=== PATIENT | male | born 1990 | race Caucasian/White ===

== ENCOUNTER → 2017-09-03 | Outpatient (CLI) | payer OTHER ==
--- NOTE | 2017-09-03 16:50 | XR ---
EXAMINATION TYPE: XR chest 2V DATE OF EXAM: 09/03/2017 COMPARISON: 03/26/2015 HISTORY: Chest pain TECHNIQUE: Frontal and lateral views of the chest are obtained. FINDINGS: Heart and mediastinum are normal. Lungs are clear of consolidation. There is no pleural ef fusion. Bony thorax is intact. IMPRESSION: Normal chest. No change.
== END ==
LOC: RADXRMAIN 16:33
PROVIDERS: ATTEND Physician Assistant
DX: R07.9 Chest pain, unspecified (principal)
CPT/HCPCS: 71020

== ENCOUNTER → 2017-12-05 | Outpatient (CLI) | payer OTHER ==
--- NOTE | 2017-12-05 10:59 | XR ---
EXAMINATION TYPE: XR ankle complete LT, XR foot complete LT DATE OF EXAM: 12/05/2017 CLINICAL HISTORY: Pain. TECHNIQUE: Frontal, lateral and oblique images of the left ankle and foot are obtained. COMPARISON: None. FINDINGS: There is no acute fracture/dislocation evident in the left ankle. The ankle mortise appea rs within normal limits. Mild diffuse subcutaneous edema is felt present. There is no acute fracture or dislocation evident in the left foot. Some flexion in the toes is noted . The joint spaces in the left foot are preserved. Mild subcutaneous edema is seen. IMPRESSION: Mild subcutaneous edema otherwise unremarkable study.
--- NOTE | 2017-12-05 11:00 | XR ---
EXAMINATION TYPE: XR lumbar spine 2 or 3V DATE OF EXAM: 12/05/2017 CLINICAL HISTORY: Low back pain. TECHNIQUE: Frontal and lateral images of the lumbar spine are obtained. COMPARISON: None FINDINGS: There are 5 lumbar type vertebral bodies identified. The lumbar spine shows straightened alignment without evidence of acute fracture or dislocation. Vertebral body heights and disk space he ights are within normal limits. No significant spurring is seen. The overlying soft tissue appears u nremarkable. IMPRESSION: Straightening of spine otherwise unremarkable study.
--- NOTE | 2017-12-05 11:02 | XR ---
EXAMINATION TYPE: XR Hip Complete RT DATE OF EXAM: 12/05/2017 CLINICAL HISTORY: Right hip pain. TECHNIQUE: AP and frogleg views of the right hip are obtained. COMPARISON: Right hip x-ray October 02, 2011. FINDINGS: There is no acute fracture/dislocation evident in the right hip. Moderate to severe superi or joint space loss remains present. There is new severe collar spurs. Right-sided pelvic phleboliths are seen. IMPRESSION: There is moderate to severe degenerative change right hip with progression from 2010 loli dy quite pronounced for patient's age.
== END | disposition home or self-care (01) ==
LOC: RADXRMAIN 09:31
PROVIDERS: ATTEND Physician Assistant
DX: M16.11 Unilateral primary osteoarthritis, right hip (principal); M43.8X6 Other specified deforming dorsopathies, lumbar region; R60.0 Localized edema
CPT/HCPCS: 72100; 73502

== ENCOUNTER → 2018-04-04 | Outpatient (CLI) | payer OTHER ==
--- NOTE | 2018-04-04 13:06 | XR ---
EXAMINATION TYPE: XR chest 2V DATE OF EXAM: 04/04/2018 COMPARISON: Chest x-ray September 03, 2017. HISTORY: Hemoptysis for 2 days. TECHNIQUE: Frontal and lateral views of the chest are obtained. FINDINGS: There is no focal air space opacity, pleural effusion, or pneumothorax seen. The cardiac silhouette size is within normal limits. The osseous structures are intact. IMPRESSION: No acute cardiopulmonary process. No significant change from prior.
== END | disposition home or self-care (01) ==
LOC: RADXRMAIN 11:00
PROVIDERS: ATTEND Physician Assistant
DX: R04.2 Hemoptysis (principal)
CPT/HCPCS: 71046

== ENCOUNTER 2018-05-14 21:33 | Emergency (ER) | payer OTHER ==
--- NOTE | 2018-05-15 00:13 | ED ---
General Adult HPI - General Chief complaint: ENT Stated complaint: Dental pain Time Seen by Provider: 05/14/18 22:39 Source: patient, RN notes reviewed Mode of arrival: ambulatory Limitations: no limitations - History of Present Illness Initial comments: 28-year-old male presents to the emergency department for a chief complaint of right jaw pain 2 days. Patient states the pain started yesterday. Patient states it was a sudden pain. Patient states he has not had his wisdom teeth removed as he is supposed to. Patient states it is painful to open his mouth all the way. Patient denies any difficulty swallowing. Patient is eating and drinking normally. Patient denies any fevers or chills at home. Patient denies any neck pain or neck stiffness. Patient states the pain is also radiating up to his ear. Patient has no other complaints at this time including shortness of breath, chest pain, abdominal pain, nausea or vomiting, headache, or visual changes. - Related Data Home Medications Medication Instructions Recorded Confirmed Ibuprofen [Motrin] 600 mg PO Q8HR PRN 05/14/18 05/14/18 Previous Rx's Medication Instructions Recorded Penicillin V Potassium [Pen Vee K] 500 mg PO Q6H 10 Days tablet 05/15/18 Allergies Allergy/AdvReac Type Severity Reaction Status Date / Time No Known Allergies Allergy Verified 05/14/18 22:17 Review of Systems ROS Statement: Those systems with pertinent positive or pertinent negative responses have been documented in the HPI. ROS Other: All systems not noted in ROS Statement are negative. Past Medical History Past Medical History: No Reported History, Osteoarthritis (OA) Additional Past Medical History / Comment(s): bone spurs History of Any Multi-Drug Resistant Organisms: None Reported Past Surgical History: No Surgical Hx Reported Past Psychological History: No Psychological Hx Reported Smoking Status: Current every day smoker Past Alcohol Use History: Rare Past Drug Use History: None Reported - Past Family History Mother Family Medical History: Diabetes Mellitus Father Family Medical History: CVA/TIA Additional Family Medical History / Comment(s): TIA General Exam Limitations: no limitations General appearance: alert, in no apparent distress Head exam: Present: atraumatic, normocephalic, normal inspection Eye exam: Present: normal appearance. Absent: scleral icterus, conjunctival injection ENT exam: Present: normal exam, normal oropharynx (Oropharynx patent. Mild swelling behind tooth 32. No swelling noted in the right side cheek. No drainage. Uvula midline. No tonsillar exudates.), mucous membranes moist, TM's normal bilaterally Neck exam: Present: normal inspection, full ROM. Absent: tenderness, meningismus, lymphadenopathy Respiratory exam: Present: normal lung sounds bilaterally. Absent: respiratory distress, wheezes, rales, rhonchi, stridor Cardiovascular Exam: Present: regular rate, normal rhythm, normal heart sounds. Absent: systolic murmur, diastolic murmur, rubs, gallop, clicks Course Vital Signs 05/14/18 05/14/18 21:37 22:53 Temperature 98.7 F Pulse Rate 105 H 88 Respiratory 18 16 Rate Blood Pressure 208/98 146/72 O2 Sat by Pulse 97 98 Oximetry Medical Decision Making - Medical Decision Making 28-year-old male presents to the emergency department for chief complaint of right jaw pain 2 days. Patient states he was supposed to have his wisdom teeth removed and noticed them coming in a while ago but did not have them removed. Patient denies any neck stiffness. Patient denies any fevers or chills. On exam patient has mild swelling behind the right last tooth. No drainage from the area. No swelling in the cheek or neck. Patient likely has a dental infection and will be treated with penicillin. Patient does have an appointment in 2 days with dentist that he will follow up with. Patient aware to return to the emergency department if he has any other worsening symptoms including fever or increased pain. In addition patient does have a known history of hypertension for which she is being treated. Patient will follow up with primary care for this. Blood pressure did decrease and stabilized in the emergency department. Disposition Clinical Impression: Dental infection Disposition: HOME SELF-CARE Condition: Good Instructions: Toothache (ED) Additional Instructions: Please take antibiotic as directed. Please go to your dental appointment on Saturday. Take Motrin and Tylenol for pain Return to the emergency department if you have any worsening symptoms or fever. Prescriptions: Penicillin V Potassium [Pen Vee K] 500 mg PO Q6H 10 Days tablet Is patient prescribed a controlled substance at d/c from ED?: No Referrals: Robbi Elias PAC [REFERRING] - 1-2 days Time of Disposition: 00:12
[2018-05-15] MEDS ORDERED: PENICILLIN VK 500MG STARTER 4 TAB BTL PO STA (00:16)
[2018-05-15 00:29] VITALS: BP 166/99; PULSE 89; RESP 18; TEMP 98.2
== END 2018-05-15 00:28 | disposition home or self-care (01) ==
LOC: EC 21:33
DX: K04.7 Periapical abscess without sinus (principal); M19.90 Unspecified osteoarthritis, unspecified site; F17.200 Nicotine dependence, unspecified, uncomplicated
CPT/HCPCS: 99282

== ENCOUNTER 2018-12-11 14:36 | Emergency (ER) | payer OTHER ==
[2018-12-11 14:46] VITALS: RESP 18
[2018-12-11] MEDS ORDERED: METOCLOPRAMIDE 5 MG/ML 2 ML VIAL IVP STA (15:08)
[2018-12-11] MEDS ORDERED: SODIUM CHLORIDE 0.9% 1,000 ML IV STA (15:08)
[2018-12-11 16:05] LABS: Basophils % (A) 0 %; Eosinophils # (A) 0.1 k/uL (0-0.7); Eosinophils % (A) 2 %; HCT 43.4 % (39.0-53.0); HGB 14.7 gm/dL (13.0-17.5); Lymphocytes # (A) 1.8 k/uL (1.0-4.8); Lymphocytes % (A) 24 %; MCH 28.3 pg (25.0-35.0); MCHC 33.8 g/dL (31.0-37.0); MCV 83.8 fL (80.0-100.0); Mean Platelet Volume 6.9; Monocytes # (A) 0.4 k/uL (0-1.0); Monocytes % (A) 5 %; Neutrophils # (A) 4.8 k/uL (1.3-7.7); Neutrophils % (A) 67 %; Platelet Count 271 k/uL (150-450); RBC 5.18 m/uL (4.30-5.90); RDW 13.7 % (11.5-15.5); WBC 7.3 k/uL (3.8-10.6)
--- NOTE | 2018-12-11 16:08 | ED ---
Abdominal Pain HPI - General Chief Complaint: Abdominal Pain Stated Complaint: Nausea, unable to go to the bathroom Time Seen by Provider: 12/11/18 14:50 Source: patient, RN notes reviewed Mode of arrival: ambulatory Limitations: no limitations - History of Present Illness Initial Comments: 28-year-old male presents emergency from chief complaint abdominal pain. Patient states she had some nausea vomiting few days ago states that has resolved. Patient states that he now feels constipated so he took some laxatives which he had a bowel movement but has not alleviated his abdominal pressure. Patient states that he feels full, distended. Patient states that he feels that he needs something and states that his stomach. Patient had no prior abdominal surgeries denies chest pain or shortness breath. Not tried any other [id number] medications. Patient denies any known fever or chills. - Related Data Allergies Allergy/AdvReac Type Severity Reaction Status Date / Time No Known Allergies Allergy Verified 12/11/18 16:04 Review of Systems ROS Statement: Those systems with pertinent positive or pertinent negative responses have been documented in the HPI. ROS Other: All systems not noted in ROS Statement are negative. Past Medical History Past Medical History: Osteoarthritis (OA) Additional Past Medical History / Comment(s): bone spurs History of Any Multi-Drug Resistant Organisms: None Reported Past Surgical History: No Surgical Hx Reported Past Psychological History: No Psychological Hx Reported Smoking Status: Current every day smoker Past Alcohol Use History: Rare Past Drug Use History: None Reported - Past Family History Mother Family Medical History: Diabetes Mellitus Father Family Medical History: CVA/TIA Additional Family Medical History / Comment(s): TIA General Exam Limitations: no limitations General appearance: alert, in no apparent distress Head exam: Present: atraumatic, normocephalic, normal inspection Neck exam: Present: normal inspection. Absent: tenderness, meningismus, lymphadenopathy Respiratory exam: Present: normal lung sounds bilaterally. Absent: respiratory distress, wheezes, rales, rhonchi, stridor Cardiovascular Exam: Present: regular rate, normal rhythm, normal heart sounds. Absent: systolic murmur, diastolic murmur, rubs, gallop, clicks GI/Abdominal exam: Present: soft, tenderness, normal bowel sounds. Absent: distended, guarding, rebound, rigid Back exam: Absent: CVA tenderness (R), CVA tenderness (L) Skin exam: Present: warm, dry, intact, normal color. Absent: rash Course Vital Signs 12/11/18 12/11/18 14:41 16:22 Temperature 98 F Pulse Rate 84 72 Respiratory 18 18 Rate Blood Pressure 152/89 134/84 O2 Sat by Pulse 97 97 Oximetry Medical Decision Making - Medical Decision Making 28-year-old male presented for abdominal pain. Patient recent GI illness. Patient states that he feels full distended after he eats. Labwork is unremarkable. X-ray shows mild air-fluid levels consistent with ileus. This is consistent with his symptoms. Patient advised to stick to clear liquid diet and progress as tolerated. Return parameters were discussed. - Lab Data Result diagrams: 12/11/18 15:15 12/11/18 15:15 Lab Results 12/11/18 12/11/18 12/11/18 Range/Units 15:15 15:15 15:15 WBC 7.3 (3.8-10.6) k/uL RBC 5.18 (4.30-5.90) m/uL Hgb 14.7 (13.0-17.5) gm/dL Hct 43.4 (39.0-53.0) % MCV 83.8 (80.0-100.0) fL MCH 28.3 (25.0-35.0) pg MCHC 33.8 (31.0-37.0) g/dL RDW 13.7 (11.5-15.5) % Plt Count 271 (150-450) k/uL Neutrophils % 67 % Lymphocytes % 24 % Monocytes % 5 % Eosinophils % 2 % Basophils % 0 % Neutrophils # 4.8 (1.3-7.7) k/uL Lymphocytes # 1.8 (1.0-4.8) k/uL Monocytes # 0.4 (0-1.0) k/uL Eosinophils # 0.1 (0-0.7) k/uL Basophils # 0.0 (0-0.2) k/uL Sodium 139 (137-145) mmol/L Potassium 3.4 L (3.5-5.1) mmol/L Chloride 103 (98-107) mmol/L Carbon Dioxide 27 (22-30) mmol/L Anion Gap 9 mmol/L BUN 13 (9-20) mg/dL Creatinine 0.67 (0.66-1.25) mg/dL Est GFR (CKD-EPI)AfAm >90 (>60 ml/min/1.73 sqM) Est GFR (CKD-EPI)NonAf >90 (>60 ml/min/1.73 sqM) Glucose 105 H (74-99) mg/dL Calcium 9.0 (8.4-10.2) mg/dL Total Bilirubin 0.7 (0.2-1.3) mg/dL AST 34 (17-59) U/L ALT 54 (21-72) U/L Alkaline Phosphatase 79 (38-126) U/L Total Protein 6.7 (6.3-8.2) g/dL Albumin 4.2 (3.5-5.0) g/dL Amylase 39 (30-110) U/L Lipase 61 (23-300) U/L Urine Color Yellow Urine Appearance Cloudy (Clear) Urine pH 5.5 (5.0-8.0) Ur Specific [place] 1.023 (1.001-1.035) Urine Protein Trace H (Negative) Urine Glucose (UA) Negative (Negative) Urine Ketones Negative (Negative) Urine Blood Negative (Negative) Urine Nitrite Negative (Negative) Urine Bilirubin Negative (Negative) Urine Urobilinogen <2.0 (<2.0) mg/dL Ur Leukocyte Esterase Negative (Negative) Urine RBC 1 (0-5) /hpf Urine WBC 2 (0-5) /hpf Ur Squamous Epith Cells 5 H (0-4) /hpf Urine Mucus Many H (None) /hpf Disposition Clinical Impression: Ileus, Abdominal pain Disposition: HOME SELF-CARE Condition: Stable Instructions (If sedation given, give patient instructions): Abdominal Pain (ED) Additional Instructions: Please return to the Emergency Department if symptoms worsen or any other concerns. Is patient prescribed a controlled substance at d/c from ED?: No Referrals: Raman Bateman DO [Primary Care Provider] - 1-2 days Time of Disposition: 16:38
[2018-12-11 16:09] LABS: Appearance,Urine Cloudy (Clear); Bilirubin,Urine Negative (Negative); Blood,Urine Negative (Negative); Color,Urine Yellow; Glucose,Urine (UA) Negative (Negative); Ketones,Urine Negative (Negative); Leukocyte Esterase,Urine Negative (Negative); Mucus,Urine Many /hpf; Nitrite,Urine Negative (Negative); PH, Urine 5.5 (5.0-8.0); Protein,Urine Trace (Negative); RBC,Urine 1 /hpf (0-5); Specific Gravity,Urine 1.023 (1.001-1.035); Squamous Epithelial Cell,Urine 5 /hpf (0-4); Urobilinogen,Urine <2.0 mg/dL (<2.0); WBC,Urine 2 /hpf (0-5)
--- NOTE | 2018-12-11 16:11 | XR ---
EXAMINATION TYPE: XR KUB DATE OF EXAM: 12/11/2018 CLINICAL DATA: 28-year-old male with abdominal pain, [facility] COMPARISON: None FINDINGS: Lung bases are clear. No evidence for free intraperitoneal air. A few scattered small central air-fluid levels. Scattered both small bowel and colonic gas is present extending distally into the rectum. No dilated bowel loops seen. No suspicious calcifications identified. IMPRESSION: Some scattered small centrally located air-fluid levels without abnormal bowel dilatation. Colonic ga s remains. Findings are nonspecific and could be transient or could represent ileus or enteritis.
[2018-12-11 16:31] LABS: ALT 54 U/L (21-72); AST 34 U/L (17-59); Albumin 4.2 g/dL (3.5-5.0); Alkaline Phosphatase 79 U/L (38-126); Amylase 39 U/L (30-110); Anion Gap 9 mmol/L; Blood Urea Nitrogen 13 mg/dL (9-20); Carbon Dioxide 27 mmol/L (22-30); Chloride 103 mmol/L (98-107); Glucose 105 mg/dL (74-99); Lipase 61 U/L (23-300); Potassium 3.4 mmol/L (3.5-5.1); Sodium 139 mmol/L (137-145); Total Bilirubin 0.7 mg/dL (0.2-1.3); Total Protein 6.7 g/dL (6.3-8.2)
[2018-12-11 17:01] VITALS: BP 131/70; PULSE 70; TEMP 98
== END 2018-12-11 17:01 | disposition home or self-care (01) ==
LOC: EC 14:36
DX: K56.7 Ileus, unspecified (principal); F17.200 Nicotine dependence, unspecified, uncomplicated
CPT/HCPCS: 36415; 80053; 82150; 83690; 85025; 81001; 74018; 99284; 96374; 96361; J2765

== ENCOUNTER 2019-02-27 07:07 | Emergency (ER) | payer OTHER ==
[2019-02-27 07:16] VITALS: BP 169/110; PULSE 104; RESP 18; TEMP 98.5
--- NOTE | 2019-02-27 07:44 | ED ---
General Adult HPI - General Chief complaint: ENT Stated complaint: Throat pain, spitting up blood Time Seen by Provider: 02/27/19 07:10 Source: patient, RN notes reviewed, old records reviewed Mode of arrival: ambulatory Limitations: no limitations - History of Present Illness Initial comments: 29-year-old male presents for evaluation of morning nasal congestion and spitting up blood. Patient states that for the past 10 years he's had the need to cough up phlegm and mucous every morning. He states that he did his normal morning routine and noticed that there was blood in his sputum. This did progress to more significant bleeding which has resolved at the time of evaluation. Patient denies epistaxis. Denies coughing up blood. States this was from his throat and he does have a mild sore throat. No chronic medical conditions. No fever or chills. No cough or dyspnea. No chest pain. - Related Data Allergies Allergy/AdvReac Type Severity Reaction Status Date / Time No Known Allergies Allergy Verified 02/27/19 07:16 Review of Systems ROS Statement: Those systems with pertinent positive or pertinent negative responses have been documented in the HPI. ROS Other: All systems not noted in ROS Statement are negative. Past Medical History Past Medical History: Osteoarthritis (OA) Additional Past Medical History / Comment(s): bone spurs History of Any Multi-Drug Resistant Organisms: None Reported Past Surgical History: Joint Replacement Past Psychological History: No Psychological Hx Reported Smoking Status: Current every day smoker Past Alcohol Use History: Rare Past Drug Use History: None Reported - Past Family History Mother Family Medical History: Diabetes Mellitus Father Family Medical History: CVA/TIA Additional Family Medical History / Comment(s): TIA General Exam Limitations: no limitations General appearance: alert, in no apparent distress Head exam: Present: atraumatic, normocephalic Eye exam: Present: normal appearance, PERRL ENT exam: Present: other (Normal anterior bilateral nares. Patient has some pharyngeal erythema and tonsillar on the right. Uvula midline. No active bleeding) Neck exam: Present: normal inspection. Absent: tenderness, meningismus Respiratory exam: Present: normal lung sounds bilaterally. Absent: respiratory distress Cardiovascular Exam: Present: regular rate, normal rhythm GI/Abdominal exam: Present: soft. Absent: distended, tenderness, guarding Extremities exam: Present: normal inspection, normal capillary refill. Absent: pedal edema Neurological exam: Present: alert, oriented X3 Psychiatric exam: Present: normal affect, normal mood Course Vital Signs 02/27/19 07:13 Temperature 98.5 F Pulse Rate 104 H Respiratory 18 Rate Blood Pressure 169/110 O2 Sat by Pulse 99 Oximetry Medical Decision Making - Medical Decision Making 29-year-old male presents with spitting up blood. No active bleeding at the time my evaluation. Patient had some mild pharyngeal erythema. Describes chronic morning congestion and sputum. He also states he has been snoring more than usual. She feels a fullness in the back of his nasal cavity. There is nothing visualized on exam. Given the duration of his symptoms I did refer him to ENT for evaluation. I instructed him on saline rinse both intranasally and o rally. He will return with return of hemorrhage. Rapid strep is negative. - Lab Data Lab Results 02/27/19 Range/Units 07:35 Group A Strep Rapid Negative (Negative) Disposition Clinical Impression: Pharyngitis Disposition: HOME SELF-CARE Condition: Good Is patient prescribed a controlled substance at d/c from ED?: No Referrals: Raman Bateman DO [Primary Care Provider] - 1-2 days Florentino Fragoso MD [STAFF PHYSICIAN] - 1-2 days Time of Disposition: 07:54
[2019-02-27] MEDS ORDERED: DEXAMETHASONE SOD PHOSPHATE 10 MG/ML 1 ML VIAL IM STA (08:03)
== END 2019-02-27 08:20 | disposition home or self-care (01) ==
LOC: EC 07:07
DX: J02.9 Acute pharyngitis, unspecified (principal); M19.90 Unspecified osteoarthritis, unspecified site; F17.200 Nicotine dependence, unspecified, uncomplicated
CPT/HCPCS: 87081; 87430; 99283; 96372; J1100

== ENCOUNTER 2020-02-27 09:36 | Emergency (ER) | payer OTHER ==
[2020-02-27 09:41] VITALS: BP 130/87; PULSE 84; RESP 16; TEMP 98.4
[2020-02-27] MEDS ORDERED: Acetaminophen-Codeine 300-30mg TAB PO STA (09:56)
--- NOTE | 2020-02-27 10:39 | XR ---
EXAMINATION TYPE: XR Hip RT and AP Pelvis DATE OF EXAM: 02/27/2020 COMPARISON: Right hip 12/05/2017 HISTORY: Pain, trauma few days prior TECHNIQUE: A single AP view of the pelvis is obtained. Two views of the right hip are obtained. FINDINGS: There is no acute fracture/dislocation evident in the pelvis. The overlying soft tissue a ppears unremarkable. Two views of right hip show no acute fracture or dislocation. Marked arthropathy changes are stable finding. No focal lytic or sclerotic lesion seen in the proximal right femur. The overlying soft tis abhay is unremarkable. IMPRESSION: There is no acute fracture or dislocation in the pelvis or right hip.
--- NOTE | 2020-02-27 10:43 | XR ---
Lumbosacral spine HISTORY: Trauma and pain 5 views of lumbosacral spine Correlation prior exam 12/05/2017 There is a mild spinal curvature which may be positional. There is a rotatory component. No evident s pondylolysis or spondylolisthesis. Lumbar vertebral bodies show preserved height and alignment. Bone mineralization is normal. IMPRESSION: No acute fracture or subluxation.
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
--- NOTE | 2020-02-27 12:12 | CT ---
EXAMINATION TYPE: CT lower extremity RT wo con DATE OF EXAM: 02/27/2020 COMPARISON: Plain film same date HISTORY: Fall, Rt hip pain CT DLP: 929.4 mGycm Automated exposure control for dose reduction was used. CT performed through the right hip. FINDINGS: There is motion on the exam. Marked arthropathy is again noted. Lucency is present along the lateral spur along the lateral femoral head, sagittal image 39, coronal images #41 through 45. No evident fra cture through the femoral neck or dislocation. Hypertrophic changes are present as noted on plain patricia m. Distortion of the humeral head is again seen. IMPRESSION: MARKED OSTEOARTHRITIS. PATIENT'S OSTEOARTHRITIC SPUR LATERALLY SHOWS A NONDISPLACED FRACTURE ALONG TH E LATERAL ASPECT OF THE FEMORAL HEAD. NO DISLOCATION.
== END 2020-02-27 13:53 | disposition home or self-care (01) ==
LOC: EC 09:36
DX: S72.001A Fracture of unspecified part of neck of right femur, initial encounter for closed fracture (principal); F17.200 Nicotine dependence, unspecified, uncomplicated; W19.XXXA Unspecified fall, initial encounter
CPT/HCPCS: 72110; 73502; 99284

== ENCOUNTER 2020-05-13 13:08 | Emergency (ER) | payer OTHER ==
[2020-05-13 13:18] VITALS: TEMP 98.4
[2020-05-13 13:32] LABS: Glucose,Whole Blood 117 mg/dL (75-99)
[2020-05-13 14:17] LABS: Basophils % (A) 0 %; Eosinophils # (A) 0.3 k/uL (0-0.7); Eosinophils % (A) 4 %; HCT 48.1 % (39.0-53.0); HGB 15.7 gm/dL (13.0-17.5); Lymphocytes # (A) 1.7 k/uL (1.0-4.8); Lymphocytes % (A) 20 %; MCH 28.5 pg (25.0-35.0); MCHC 32.5 g/dL (31.0-37.0); MCV 87.7 fL (80.0-100.0); Mean Platelet Volume 7.3; Monocytes # (A) 0.5 k/uL (0-1.0); Monocytes % (A) 6 %; Neutrophils # (A) 5.7 k/uL (1.3-7.7); Neutrophils % (A) 68 %; Platelet Count 273 k/uL (150-450); RBC 5.49 m/uL (4.30-5.90); RDW 13.1 % (11.5-15.5); WBC 8.3 k/uL (3.8-10.6)
[2020-05-13 14:18] VITALS: RESP 18
[2020-05-13] MEDS ORDERED: SODIUM CHLORIDE 0.9% 500 ML 500 ML IV ONE (14:18)
--- NOTE | 2020-05-13 14:20 | XR ---
EXAMINATION TYPE: XR chest 2V DATE OF EXAM: 05/13/2020 COMPARISON: 04/04/2018 TECHNIQUE: PA and lateral views submitted. HISTORY: Dizziness FINDINGS: The lungs are clear and there is no pneumothorax, pleural effusion, or focal pneumonia. No overt fa ilure. Biapical pleural thickening. IMPRESSION: 1. No acute process.
[2020-05-13 14:22] LABS: ALT 36 U/L (4-49); AST 36 U/L (17-59); African American GFR (CKD) >90 (>60 ml/min/1.73 sqM); Albumin 4.1 g/dL (3.5-5.0); Alkaline Phosphatase 92 U/L (38-126); Anion Gap 8 mmol/L; Blood Urea Nitrogen 19 mg/dL (9-20); Calcium 9.2 mg/dL (8.4-10.2); Carbon Dioxide 24 mmol/L (22-30); Chloride 108 mmol/L (98-107); Glucose 118 mg/dL (74-99); Non-African American GFR(CKD) >90 (>60 ml/min/1.73 sqM); Potassium 4.2 mmol/L (3.5-5.1); Sodium 140 mmol/L (137-145); Total Bilirubin 0.7 mg/dL (0.2-1.3); Total Protein 6.4 g/dL (6.3-8.2)
--- NOTE | 2020-05-13 14:47 | ED ---
Dizziness HPI - General Chief Complaint: Dizziness Stated Complaint: light headed, shaky Time Seen by Provider: 05/13/20 13:20 Source: patient Mode of arrival: wheelchair Limitations: no limitations - History of Present Illness Initial Comments: 30-year-old male presenting today for chief complaint of lightheadedness shakiness. Patient states he was smoking a cigarette he became lightheaded and shaky. Patient states she is concerned and presented to the ER for evaluation. Patient states he had just ate lunch. Patient states he did have chest pain shortness of breath arm pain and jaw pain. Patient denies experiencing any unusual symptoms the last few days or this morning. Patient denies any nausea vomiting abdominal pain back pain. Patient denies any fevers. Patient denies any other localizing symptoms. Patient denies syncopal episodes patient denies experiencing this in the past. Remaining review of systems negative upon arrival patient appears well signs of acute distress. - Related Data Previous Rx's Medication Instructions Recorded Hydrocodone/Acetaminophen [Marathon 1 tab PO Q4HR PRN #18 tab 02/27/20 5-325] Allergies Allergy/AdvReac Type Severity Reaction Status Date / Time No Known Allergies Allergy Verified 05/13/20 13:18 Review of Systems ROS Statement: Those systems with pertinent positive or pertinent negative responses have been documented in the HPI. ROS Other: All systems not noted in ROS Statement are negative. Past Medical History Past Medical History: Osteoarthritis (OA) Additional Past Medical History / Comment(s): bone spurs History of Any Multi-Drug Resistant Organisms: None Reported Past Surgical History: Joint Replacement Past Psychological History: No Psychological Hx Reported Past Alcohol Use History: Rare Past Drug Use History: None Reported - Past Family History Mother Family Medical History: Diabetes Mellitus Father Family Medical History: CVA/TIA Additional Family Medical History / Comment(s): TIA General Exam - General Exam Comments Initial Comments: General: The patient is awake and alert, in no distress Eye: +3 mm pupils are equal, round and reactive to light, extra-ocular movements are intact. No nystagmus. There is normal conjunctiva bilaterally. No signs of icterus. Ears, nose, mouth and throat: There are moist mucous membranes and no oral lesions. Neck: The neck is supple, there is no tenderness or JVD. Cardiovascular: There is a regular rate and rhythm. No murmur, rub or gallop is appreciated. Respiratory: Lungs are clear to auscultation, respirations are non-labored, breath sounds are equal. No wheezes, stridor, rales, or rhonchi. Gastrointestinal: Soft, non-distended, non-tender abdomen without masses or organomegaly noted. There is no rebound or guarding present. Musculoskeletal: Normal ROM, no tenderness. Strength 5/5. Sensation intact. Radial pulses equal bilaterally 2+. Neurological: A&O x 3. CN II-XII intact grossly, There are no obvious motor or sensory deficits. Coordination appears grossly intact. Speech is normal. Skin: Skin is warm and dry and no rashes or lesions are noted. No calf pain or LE swelling/edema. Psychiatric: Cooperative, appropriate mood & affect, normal judgment. Limitations: no limitations Course Vital Signs 05/13/20 05/13/20 05/13/20 13:15 14:15 15:15 Temperature 98.4 F Pulse Rate 87 71 Respiratory 16 18 18 Rate Blood Pressure 131/65 132/71 O2 Sat by Pulse 97 99 Oximetry Medical Decision Making - Medical Decision Making 30-year-old male presenting for lightheaded shaky sensation. EKG WNL. CXR clear. No murmur on exam. Patietn lungs clear. VS within acceptable limits. No orthostatic hypotension. No peripheral extremity findings. Patient symptoms resolved. Given IVF. Patient advised to quit smoking f/u with PCP. Patient is to return for repeat symptoms or new symptoms that are concerning to the ER. patient otherwise appears well and after discussing case in detail [facility] Dr. Lopez we feel patient is stable for discharge. - Lab Data Result diagrams: 05/13/20 13:45 05/13/20 13:45 Lab Results 05/13/20 05/13/20 05/13/20 Range/Units 13:26 13:45 13:45 WBC 8.3 (3.8-10.6) k/uL RBC 5.49 (4.30-5.90) m/uL Hgb 15.7 (13.0-17.5) gm/dL Hct 48.1 (39.0-53.0) % MCV 87.7 (80.0-100.0) fL MCH 28.5 (25.0-35.0) pg MCHC 32.5 (31.0-37.0) g/dL RDW 13.1 (11.5-15.5) % Plt Count 273 (150-450) k/uL Neutrophils % 68 % Lymphocytes % 20 % Monocytes % 6 % Eosinophils % 4 % Basophils % 0 % Neutrophils # 5.7 (1.3-7.7) k/uL Lymphocytes # 1.7 (1.0-4.8) k/uL Monocytes # 0.5 (0-1.0) k/uL Eosinophils # 0.3 (0-0.7) k/uL Basophils # 0.0 (0-0.2) k/uL Sodium 140 (137-145) mmol/L Potassium 4.2 (3.5-5.1) mmol/L Chloride 108 H (98-107) mmol/L Carbon Dioxide 24 (22-30) mmol/L Anion Gap 8 mmol/L BUN 19 (9-20) mg/dL Creatinine 0.66 (0.66-1.25) mg/dL Est GFR (CKD-EPI)AfAm >90 (>60 ml/min/1.73 sqM) Est GFR (CKD-EPI)NonAf >90 (>60 ml/min/1.73 sqM) Glucose 118 H (74-99) mg/dL POC Glucose (mg/dL) 117 H (75-99) mg/dL POC Glu Systems Integrator ID Marni Garza Calcium 9.2 (8.4-10.2) mg/dL Total Bilirubin 0.7 (0.2-1.3) mg/dL AST 36 (17-59) U/L ALT 36 (4-49) U/L Alkaline Phosphatase 92 (38-126) U/L Troponin I (0.000-0.034) ng/mL Total Protein 6.4 (6.3-8.2) g/dL Albumin 4.1 (3.5-5.0) g/dL 05/13/20 Range/Units 13:45 WBC (3.8-10.6) k/uL RBC (4.30-5.90) m/uL Hgb (13.0-17.5) gm/dL Hct (39.0-53.0) % MCV (80.0-100.0) fL MCH (25.0-35.0) pg MCHC (31.0-37.0) g/dL RDW (11.5-15.5) % Plt Count (150-450) k/uL Neutrophils % % Lymphocytes % % Monocytes % % Eosinophils % % Basophils % % Neutrophils # (1.3-7.7) k/uL Lymphocytes # (1.0-4.8) k/uL Monocytes # (0-1.0) k/uL Eosinophils # (0-0.7) k/uL Basophils # (0-0.2) k/uL Sodium (137-145) mmol/L Potassium (3.5-5.1) mmol/L Chloride (98-107) mmol/L Carbon Dioxide (22-30) mmol/L Anion Gap mmol/L BUN (9-20) mg/dL Creatinine (0.66-1.25) mg/dL Est GFR (CKD-EPI)AfAm (>60 ml/min/1.73 sqM) Est GFR (CKD-EPI)NonAf (>60 ml/min/1.73 sqM) Glucose (74-99) mg/dL POC Glucose (mg/dL) (75-99) mg/dL POC Glu Systems Integrator ID Calcium (8.4-10.2) mg/dL Total Bilirubin (0.2-1.3) mg/dL AST (17-59) U/L ALT (4-49) U/L Alkaline Phosphatase (38-126) U/L Troponin I <0.012 (0.000-0.034) ng/mL Total Protein (6.3-8.2) g/dL Albumin (3.5-5.0) g/dL Disposition Clinical Impression: Lightheaded, Shakiness Disposition: HOME SELF-CARE Condition: Good Instructions (If sedation given, give patient instructions): Lightheadedness ( ED) Additional Instructions: Please use medication as discussed. Please follow-up with family doctor in the next 2 days.. Please return to emergency room if the symptoms increase or worsen or for any other concerns. Is patient prescribed a controlled substance at d/c from ED?: No Referrals: None,Stated [Primary Care Provider] - 1-2 days [facility] [NON-STAFF] - 1-2 days Time of Disposition: 14:47
[2020-05-13 15:23] VITALS: BP 132/71; PULSE 71
== END 2020-05-13 15:18 | disposition home or self-care (01) ==
LOC: EC 13:08
DX: R42 Dizziness and giddiness (principal); R25.1 Tremor, unspecified; R06.02 Shortness of breath; R07.9 Chest pain, unspecified; F17.210 Nicotine dependence, cigarettes, uncomplicated; Z96.60 Presence of unspecified orthopedic joint implant
CPT/HCPCS: 36415; 71046; 80053; 84484; 85025; 93005; 99284

== ENCOUNTER 2020-08-03 09:04 | Emergency (ER) | payer OTHER ==
[2020-08-03 09:15] VITALS: RESP 18
[2020-08-03] MEDS ORDERED: SODIUM CHLORIDE 0.9% 1,000 ML IV STA (09:28)
[2020-08-03] MEDS ORDERED: ONDANSETRON 4 MG/2 ML VIAL IVP STA (09:28)
[2020-08-03] MEDS ORDERED: KETOROLAC 15 MG/ML 1 ML VIAL IVP STA (09:29)
--- NOTE | 2020-08-03 09:34 | ED ---
General Adult HPI - General Chief complaint: Nausea/Vomiting/Diarrhea Stated complaint: Back Pain, Vomiting, Nausea Time Seen by Provider: 08/03/20 09:16 Source: patient, RN notes reviewed, old records reviewed Mode of arrival: wheelchair Limitations: no limitations - History of Present Illness Initial comments: 30-year-old male presenting for evaluation of nausea vomiting and diarrhea. Patient states his symptoms began yesterday morning. Multiple episodes of loose stool. He states he generally felt unwell. Approximately one week ago he had upper respiratory symptoms and has a persistent cough. This morning he developed nausea and vomiting as well as low back pain. He denies trauma. He denies dysuria or hematuria. He denies fever or chills. - Related Data Home Medications Medication Instructions Recorded Confirmed Acetaminophen [Tylenol] 650 mg PO Q4H PRN 08/03/20 08/03/20 Allergies Allergy/AdvReac Type Severity Reaction Status Date / Time No Known Allergies Allergy Verified 08/03/20 09:46 Review of Systems ROS Statement: Those systems with pertinent positive or pertinent negative responses have been documented in the HPI. ROS Other: All systems not noted in ROS Statement are negative. Past Medical History Past Medical History: Osteoarthritis (OA) Additional Past Medical History / Comment(s): bone spurs History of Any Multi-Drug Resistant Organisms: None Reported Past Surgical History: Joint Replacement Past Psychological History: No Psychological Hx Reported Smoking Status: Current every day smoker Past Alcohol Use History: Rare Past Drug Use History: None Reported - Past Family History Mother Family Medical History: Diabetes Mellitus Father Family Medical History: CVA/TIA Additional Family Medical History / Comment(s): TIA General Exam Limitations: no limitations General appearance: alert, in no apparent distress Head exam: Present: atraumatic, normocephalic Eye exam: Present: normal appearance, PERRL ENT exam: Present: normal oropharynx, mucous membranes dry Neck exam: Present: normal inspection. Absent: tenderness, meningismus Respiratory exam: Present: other. Absent: normal lung sounds bilaterally (bronchospastic cough), respiratory distress, wheezes Cardiovascular Exam: Present: regular rate, normal rhythm GI/Abdominal exam: Present: soft. Absent: distended, tenderness, guarding, rebound Extremities exam: Present: normal inspection Back exam: Present: normal inspection, CVA tenderness (L), paraspinal tenderness Neurological exam: Present: alert, oriented X3, CN II-XII intact. Absent: motor sensory deficit Psychiatric exam: Present: normal affect, normal mood Skin exam: Present: warm, dry, intact. Absent: cyanosis, diaphoretic Course Vital Signs 08/03/20 08/03/20 09:13 10:14 Temperature 97.9 F Pulse Rate 76 60 Respiratory 18 18 Rate Blood Pressure 151/103 140/85 O2 Sat by Pulse 99 96 Oximetry Medical Decision Making - Medical Decision Making 30-year-old male with multiple complaints including recent cough and URI symptoms, diarrhea and vomiting. Patient well-appearing with stable vitals. He has normal CBC, normal CMP, negative urinalysis. His x-ray of both the chest and abdomen are unremarkable. He is feeling much better. He will monitor symptoms for the next several days and return with any new or worsening symptom s. - Lab Data Result diagrams: 08/03/20 09:50 08/03/20 09:50 Lab Results 08/03/20 08/03/20 08/03/20 Range/Units 09:50 09:50 09:50 WBC 8.6 (3.8-10.6) k/uL RBC 5.42 (4.30-5.90) m/uL Hgb 15.5 (13.0-17.5) gm/dL Hct 47.6 (39.0-53.0) % MCV 87.8 (80.0-100.0) fL MCH 28.5 (25.0-35.0) pg MCHC 32.5 (31.0-37.0) g/dL RDW 13.2 (11.5-15.5) % Plt Count 260 (150-450) k/uL Neutrophils % 73 % Lymphocytes % 17 % Monocytes % 4 % Eosinophils % 4 % Basophils % 0 % Neutrophils # 6.3 (1.3-7.7) k/uL Lymphocytes # 1.5 (1.0-4.8) k/uL Monocytes # 0.4 (0-1.0) k/uL Eosinophils # 0.4 (0-0.7) k/uL Basophils # 0.0 (0-0.2) k/uL Sodium 138 (137-145) mmol/L Potassium 3.9 (3.5-5.1) mmol/L Chloride 106 (98-107) mmol/L Carbon Dioxide 26 (22-30) mmol/L Anion Gap 6 mmol/L BUN 16 (9-20) mg/dL Creatinine 0.69 (0.66-1.25) mg/dL Est GFR (CKD-EPI)AfAm >90 (>60 ml/min/1.73 sqM) Est GFR (CKD-EPI)NonAf >90 (>60 ml/min/1.73 sqM) Glucose 113 H (74-99) mg/dL Plasma Lactic Acid Amos (0.7-2.0) mmol/L Calcium 8.6 (8.4-10.2) mg/dL Total Bilirubin 0.8 (0.2-1.3) mg/dL AST 27 (17-59) U/L ALT 35 (4-49) U/L Alkaline Phosphatase 82 (38-126) U/L Total Protein 6.5 (6.3-8.2) g/dL Albumin 3.9 (3.5-5.0) g/dL Amylase 41 (30-110) U/L Lipase 51 (23-300) U/L Urine Color Yellow Urine Appearance Clear (Clear) Urine pH 5.5 (5.0-8.0) Ur Specific [place] 1.027 (1.001-1.035) Urine Protein Negative (Negative) Urine Glucose (UA) Negative (Negative) Urine Ketones Negative (Negative) Urine Blood Negative (Negative) Urine Nitrite Negative (Negative) Urine Bilirubin Negative (Negative) Urine Urobilinogen <2.0 (<2.0) mg/dL Ur Leukocyte Esterase Negative (Negative) 08/03/20 Range/Units 09:50 WBC (3.8-10.6) k/uL RBC (4.30-5.90) m/uL Hgb (13.0-17.5) gm/dL Hct (39.0-53.0) % MCV (80.0-100.0) fL MCH (25.0-35.0) pg MCHC (31.0-37.0) g/dL RDW (11.5-15.5) % Plt Count (150-450) k/uL Neutrophils % % Lymphocytes % % Monocytes % % Eosinophils % % Basophils % % Neutrophils # (1.3-7.7) k/uL Lymphocytes # (1.0-4.8) k/uL Monocytes # (0-1.0) k/uL Eosinophils # (0-0.7) k/uL Basophils # (0-0.2) k/uL Sodium (137-145) mmol/L Potassium (3.5-5.1) mmol/L Chloride (98-107) mmol/L Carbon Dioxide (22-30) mmol/L Anion Gap mmol/L BUN (9-20) mg/dL Creatinine (0.66-1.25) mg/dL Est GFR (CKD-EPI)AfAm (>60 ml/min/1.73 sqM) Est GFR (CKD-EPI)NonAf (>60 ml/min/1.73 sqM) Glucose (74-99) mg/dL Plasma Lactic Acid Amos 1.0 (0.7-2.0) mmol/L Calcium (8.4-10.2) mg/dL Total Bilirubin (0.2-1.3) mg/dL AST (17-59) U/L ALT (4-49) U/L Alkaline Phosphatase (38-126) U/L Total Protein (6.3-8.2) g/dL Albumin (3.5-5.0) g/dL Amylase (30-110) U/L Lipase (23-300) U/L Urine Color Urine Appearance (Clear) Urine pH (5.0-8.0) Ur Specific [place] (1.001-1.035) Urine Protein (Negative) Urine Glucose (UA) (Negative) Urine Ketones (Negative) Urine Blood (Negative) Urine Nitrite (Negative) Urine Bilirubin (Negative) Urine Urobilinogen (<2.0) mg/dL Ur Leukocyte Esterase (Negative) Disposition Clinical Impression: Dehydration, Viral syndrome Disposition: HOME SELF-CARE Condition: Good Instructions (If sedation given, give patient instructions): Acute Diarrhea (ED), Acute Nausea and Vomiting (ED) Is patient prescribed a controlled substance at d/c from ED?: No Referrals: None,Stated [Primary Care Provider] - 1-2 days Johnnie Grant [STAFF PHYSICIAN] - 1-2 days Time of Disposition: 10:50
[2020-08-03 10:04] LABS: Basophils % (A) 0 %; Eosinophils # (A) 0.4 k/uL (0-0.7); Eosinophils % (A) 4 %; HCT 47.6 % (39.0-53.0); HGB 15.5 gm/dL (13.0-17.5); Lymphocytes # (A) 1.5 k/uL (1.0-4.8); Lymphocytes % (A) 17 %; MCH 28.5 pg (25.0-35.0); MCHC 32.5 g/dL (31.0-37.0); MCV 87.8 fL (80.0-100.0); Mean Platelet Volume 6.8; Monocytes # (A) 0.4 k/uL (0-1.0); Monocytes % (A) 4 %; Neutrophils # (A) 6.3 k/uL (1.3-7.7); Neutrophils % (A) 73 %; Platelet Count 260 k/uL (150-450); RBC 5.42 m/uL (4.30-5.90); RDW 13.2 % (11.5-15.5); WBC 8.6 k/uL (3.8-10.6)
[2020-08-03 10:05] LABS: Appearance,Urine Clear (Clear); Bilirubin,Urine Negative (Negative); Blood,Urine Negative (Negative); Color,Urine Yellow; Glucose,Urine (UA) Negative (Negative); Ketones,Urine Negative (Negative); Leukocyte Esterase,Urine Negative (Negative); Nitrite,Urine Negative (Negative); PH, Urine 5.5 (5.0-8.0); Protein,Urine Negative (Negative); Specific Gravity,Urine 1.027 (1.001-1.035); Urobilinogen,Urine <2.0 mg/dL (<2.0)
--- NOTE | 2020-08-03 10:08 | XR ---
EXAMINATION TYPE: XR chest 2V DATE OF EXAM: 08/03/2020 COMPARISON: 05/13/2020 INDICATION: Cough and fatigue TECHNIQUE: Frontal and lateral views of the chest are obtained. FINDINGS: The heart size is normal. The pulmonary vasculature is normal. The lungs are clear. IMPRESSION: 1. No acute pulmonary process.
--- NOTE | 2020-08-03 10:12 | XR ---
EXAMINATION TYPE: XR KUB DATE OF EXAM: 08/03/2020 COMPARISON: 12/11/2018 INDICATION: Abdominal pain TECHNIQUE: Single view abdomen upright view FINDINGS: There is nonspecific bowel gas pattern. There appears to be predominantly within the colon. No free a ir is evident. No differential air-fluid levels are evident. Psoas margins are normal. No organomegaly is present. IMPRESSION: 1. Unremarkable Abdomen
[2020-08-03 10:15] VITALS: PULSE 60
[2020-08-03 10:19] LABS: ALT 35 U/L (4-49); AST 27 U/L (17-59); African American GFR (CKD) >90 (>60 ml/min/1.73 sqM); Albumin 3.9 g/dL (3.5-5.0); Alkaline Phosphatase 82 U/L (38-126); Amylase 41 U/L (30-110); Anion Gap 6 mmol/L; Blood Urea Nitrogen 16 mg/dL (9-20); Calcium 8.6 mg/dL (8.4-10.2); Carbon Dioxide 26 mmol/L (22-30); Chloride 106 mmol/L (98-107); Glucose 113 mg/dL (74-99); Non-African American GFR(CKD) >90 (>60 ml/min/1.73 sqM); Potassium 3.9 mmol/L (3.5-5.1); Sodium 138 mmol/L (137-145); Total Bilirubin 0.8 mg/dL (0.2-1.3); Total Protein 6.5 g/dL (6.3-8.2)
[2020-08-03 11:09] VITALS: BP 131/95; TEMP 97.7
== END 2020-08-03 11:07 | disposition home or self-care (01) ==
LOC: EC 09:04
DX: B34.9 Viral infection, unspecified (principal); E86.0 Dehydration; F17.200 Nicotine dependence, unspecified, uncomplicated
CPT/HCPCS: 36415; 80053; 82150; 83605; 83690; 85025; 81003; 71046; 74018; 99284; 96374; 96375; 96361; J2405; J1885

== ENCOUNTER 2021-05-14 21:19 | Emergency (ER) | payer OTHER ==
[2021-05-14 21:37] VITALS: BP 142/79; PULSE 76; RESP 18; TEMP 98.3
[2021-05-14] MEDS ORDERED: SODIUM CHLORIDE 0.9% 1,000 ML IV STA (21:49)
[2021-05-14] MEDS ORDERED: MORPHINE SULFATE 4 MG/ML SYRINGE IV STA (21:49)
--- NOTE | 2021-05-14 21:52 | ED ---
General Adult HPI - General Chief complaint: Extremity Injury, Lower Stated complaint: Hip Pain Time Seen by Provider: 05/14/21 21:23 Source: patient, EMS Mode of arrival: EMS Limitations: physical limitation - History of Present Illness Initial comments: Dictation was produced using [employer] dictation software. please excuse any grammatical, word or spelling errors. Chief Complaint: 31-year-old male presents to the emergency department for right-sided hip pain. History of Present Illness: 31 y Old male presents with right-sided hip pain. Patient fell for 5 days ago off a porch landing on his right side. States today after his pain didn't feel that bad. Progressively the next several days his symptoms are getting worse. Patient states that his pain was so severe today that he was not able to get up. He states that even tacitly walking to the bathroom to urinate he was unable to do. He states he urinated on himself bec ause he had to much pain trying get up. The pain to the posterior and anterior right hip. Has history of hip arthritis on the right side and was recommended to have hip replacement. The ROS documented in this emergency department record has been reviewed and confirmed by me. Those systems with pertinent positive or negative responses have been documented in the HPI. All other systems are other negative and/or noncontributory. PHYSICAL EXAM: General Impression: Alert and oriented x3, not in acute distress HEENT: Normocephalic atraumatic, extra-ocular movements intact, pupils equal and reactive to light bilaterally, mucous membranes moist. Cardiovascular: Heart regular rate and rhythm Chest: Able to complete full sentences, no retractions, no tachypnea Abdomen: abdomen soft, non-tender, non-distended, no organomegaly Musculoskeletal: Pulses present and equal in all extremities, no peripheral edema Right hip: Intense and severe pain with any manipulation at the right hip. Motor: no focal deficits noted Neurological: CN II-XII grossly intact, no focal motor or sensory deficits noted Skin: Intact with no visualized rashes Psych: Normal affect and mood ED course: 31-year-old male presents with severe right hip pain. Again having symptoms after fall off a porch 5 days ago his symptoms are getting worse. So severe he can't even walk to the bathroom to urinate. Vital signs Arrival are within acceptable limits. Laboratory evaluation obtained showing no acute processes. X-ray of the hip shows moderate osteoporosis the right hip joint which has progressed since old exam. Patient reevaluated bedside so having pain. Disposition options were discussed. Patient would like to be discharged follow-up with outpatient orthopedic states that he wants to be brought to his parents house so they can help him while he is recovering from the pain. - Related Data Home Medications Medication Instructions Recorded Confirmed Acetaminophen [Tylenol] 650 mg PO Q4H PRN 08/03/20 08/03/20 Previous Rx's Medication Instructions Recorded oxyCODONE-APAP 10-325MG [Percocet 1 tab PO Q4HR PRN 3 Days #18 tab 05/14/21 10-325 mg] Allergies Allergy/AdvReac Type Severity Reaction Status Date / Time No Known Allergies Allergy Verified 08/03/20 09:46 Review of Systems ROS Statement: Those systems with pertinent positive or pertinent negative responses have been documented in the HPI. ROS Other: All systems not noted in ROS Statement are negative. Past Medical History Past Medical History: Osteoarthritis (OA) Additional Past Medical History / Comment(s): bone spurs History of Any Multi-Drug Resistant Organisms: None Reported Past Surgical History: Joint Replacement Past Psychological History: No Psychological Hx Reported Smoking Status: Current every day smoker Past Alcohol Use History: Rare Past Drug Use History: None Reported - Past Family History Mother Family Medical History: Diabetes Mellitus Father Family Medical History: CVA/TIA Additional Family Medical History / Comment(s): TIA General Exam Limitations: physical limitation Course Vital Signs 05/14/21 21:24 Temperature 98.3 F Pulse Rate 76 Respiratory 18 Rate Blood Pressure 142/79 O2 Sat by Pulse 96 Oximetry Medical Decision Making - Lab Data Result diagrams: 05/14/21 22:02 05/14/21 22:02 Lab Results 05/14/21 05/14/21 Range/Units 22:02 22:02 WBC 8.7 (3.8-10.6) k/uL RBC 5.35 (4.30-5.90) m/uL Hgb 15.7 (13.0-17.5) gm/dL Hct 46.8 (39.0-53.0) % MCV 87.6 (80.0-100.0) fL MCH 29.3 (25.0-35.0) pg MCHC 33.5 (31.0-37.0) g/dL RDW 13.2 (11.5-15.5) % Plt Count 268 (150-450) k/uL MPV 7.3 Neutrophils % 69 % Lymphocytes % 22 % Monocytes % 5 % Eosinophils % 3 % Basophils % 1 % Neutrophils # 6.0 (1.3-7.7) k/uL Lymphocytes # 1.9 (1.0-4.8) k/uL Monocytes # 0.4 (0-1.0) k/uL Eosinophils # 0.2 (0-0.7) k/uL Basophils # 0.1 (0-0.2) k/uL ESR 8 (0-15) mm/hr Sodium 138 (137-145) mmol/L Potassium 4.5 (3.5-5.1) mmol/L Chloride 107 (98-107) mmol/L Carbon Dioxide 23 (22-30) mmol/L Anion Gap 8 mmol/L BUN 21 H (9-20) mg/dL Creatinine 0.64 L (0.66-1.25) mg/dL Est GFR (CKD-EPI)AfAm >90 (>60 ml/min/1.73 sqM) Est GFR (CKD-EPI)NonAf >90 (>60 ml/min/1.73 sqM) Glucose 104 H (74-99) mg/dL Calcium 9.4 (8.4-10.2) mg/dL C-Reactive Protein 0.7 (<1.0) mg/dL Disposition Clinical Impression: Hip pain Disposition: HOME SELF-CARE Condition: Fair Instructions (If sedation given, give patient instructions): Hip Pain (ED) Prescriptions: oxyCODONE-APAP 10-325MG [Percocet 10-325 mg] 1 tab PO Q4HR PRN 3 Days #18 tab PRN Reason: Pain Is patient prescribed a controlled substance at d/c from ED?: Yes If prescribed controlled substance>3 days was MAPS reviewed?: Prescribed <3 Days Referrals: Russ Segovia DO [Doctor of Osteopathic Medicine] - 1-2 days
[2021-05-14 22:11] LABS: Basophils # (A) 0.1 k/uL (0-0.2); Basophils % (A) 1 %; Eosinophils # (A) 0.2 k/uL (0-0.7); Eosinophils % (A) 3 %; HCT 46.8 % (39.0-53.0); HGB 15.7 gm/dL (13.0-17.5); Lymphocytes # (A) 1.9 k/uL (1.0-4.8); Lymphocytes % (A) 22 %; MCH 29.3 pg (25.0-35.0); MCHC 33.5 g/dL (31.0-37.0); MCV 87.6 fL (80.0-100.0); Mean Platelet Volume 7.3; Monocytes # (A) 0.4 k/uL (0-1.0); Monocytes % (A) 5 %; Neutrophils % (A) 69 %; Platelet Count 268 k/uL (150-450); RBC 5.35 m/uL (4.30-5.90); RDW 13.2 % (11.5-15.5); WBC 8.7 k/uL (3.8-10.6)
[2021-05-14] MEDS ORDERED: ONDANSETRON 4 MG/2 ML VIAL IVP STA (22:16)
[2021-05-14 22:21] LABS: African American GFR (CKD) >90 (>60 ml/min/1.73 sqM); Anion Gap 8 mmol/L; Blood Urea Nitrogen 21 mg/dL (9-20); C Reactive Protein 0.7 mg/dL (<1.0); Calcium 9.4 mg/dL (8.4-10.2); Carbon Dioxide 23 mmol/L (22-30); Chloride 107 mmol/L (98-107); Glucose 104 mg/dL (74-99); Non-African American GFR(CKD) >90 (>60 ml/min/1.73 sqM); Potassium 4.5 mmol/L (3.5-5.1); Sodium 138 mmol/L (137-145)
--- NOTE | 2021-05-14 22:54 | XR ---
EXAMINATION TYPE: XR Hip RT and AP Pelvis DATE OF EXAM: 05/14/2021 COMPARISON: 02/27/2020 HISTORY: Hip pain. TECHNIQUE: 2 views FINDINGS: The pelvic ring is intact. There is moderate narrowing of the right hip joint space with ac etabular spurring. There is also spurring on the femoral head. Sacroiliac joints are intact. I see no fracture line. IMPRESSION: Moderate osteoarthritis in the right hip joint that has progressed slightly compared to o ld exam.
[2021-05-14 23:11] LABS: Erythrocyte Sedimentation Rate 8 mm/hr (0-15)
[2021-05-14] MEDS ORDERED: ACET/COD 300 MG/30 MG STARTER PACK 6 TAB BTL PO STA (23:19)
== END 2021-05-15 | disposition home or self-care (01) ==
LOC: EC 21:19
DX: M25.551 Pain in right hip (principal); F17.200 Nicotine dependence, unspecified, uncomplicated; Z83.3 Family history of diabetes mellitus; W13.0XXA Fall from, out of or through balcony, initial encounter
CPT/HCPCS: 36415; 80048; 85652; 85025; 86140; 73502; 96374; 96375; 96361; 99284; J2270; J2405

== ENCOUNTER 2023-09-23 05:40 | Emergency (ER) | payer OTHER ==
[2023-09-23] MEDS ORDERED: ETODOLAC 400 MG TAB PO STA (06:02)
[2023-09-23 06:06] VITALS: BP 161/97; PULSE 77; RESP 18; TEMP 97.7
--- NOTE | 2023-09-23 06:07 | ED ---
ENT HPI - General Chief complaint: Dental/Oral Stated complaint: Dental Pain Source: patient Mode of arrival: ambulatory Limitations: no limitations - History of Present Illness Initial comments: 33-year-old male presents to the emergency department reporting pain to the right maxilla. States that he has a broken wisdom tooth on that side which occasionally will cause him pain. The pain was so severe last night that it kept him awake all night. He is already on "amoxicillin for bronchitis". States that he has been taking Motrin Tylenol for pain however it has not been h elping. He recently got insurance and has plans to make an appointment with his dentist however he does not have one yet. He states that the last time he had pain this bad that he came to the emergency department and received a shot of Toradol. States that the medication helped him out significantly. He denies any fevers. No difficulty swallowing or breathing. No oral swelling. No other alleviating, precipitating or modifying factors - Related Data Home Medications Medication Instructions Recorded Confirmed Acetaminophen [Tylenol] 650 mg PO Q4H PRN 08/03/20 08/03/20 Previous Rx's Medication Instructions Recorded oxyCODONE-APAP 10-325MG [Percocet 1 tab PO Q4HR PRN 3 Days #18 tab 05/14/21 10-325 mg] Ketorolac [Toradol] 10 mg PO Q8HR PRN #15 tab 09/23/23 Allergies Allergy/AdvReac Type Severity Reaction Status Date / Time No Known Allergies Allergy Verified 09/23/23 05:42 Review of Systems ROS Statement: Those systems with pertinent positive or pertinent negative responses have been documented in the HPI. ROS Other: All systems not noted in ROS Statement are negative. Past Medical History Past Medical History: Osteoarthritis (OA) Additional Past Medical History / Comment(s): bone spurs History of Any Multi-Drug Resistant Organisms: None Reported Past Surgical History: Joint Replacement Past Psychological History: No Psychological Hx Reported Smoking Status: Current every day smoker Past Alcohol Use History: Rare Past Drug Use History: None Reported - Past Family History Mother Family Medical History: Diabetes Mellitus Father Family Medical History: CVA/TIA Additional Family Medical History / Comment(s): TIA General Exam Limitations: no limitations General appearance: alert, in no apparent distress Head exam: Present: atraumatic, normocephalic, normal inspection Eye exam: Present: normal appearance, PERRL, EOMI. Absent: scleral icterus, conjunctival injection, periorbital swelling ENT exam: Present: normal exam, mucous membranes moist, other (Tenderness to percussion of the right maxillary wisdom tooth. No oral swelling. No drooling, trismus, hoarseness or stridor. Floor of mouth is soft) Neck exam: Present: normal inspection. Absent: tenderness, meningismus, lymphadenopathy Respiratory exam: Present: normal lung sounds bilaterally. Absent: respiratory distress, wheezes, rales, rhonchi, stridor Cardiovascular Exam: Present: regular rate, normal rhythm, normal heart sounds. Absent: systolic murmur, diastolic murmur, rubs, gallop, clicks GI/Abdominal exam: Present: soft, normal bowel sounds. Absent: distended, tenderness, guarding, rebound, rigid Extremities exam: Present: normal inspection, full ROM, normal capillary refill. Absent: tenderness, pedal edema, joint swelling, calf tenderness Back exam: Present: normal inspection Neurological exam: Present: alert, oriented X3, CN II-XII intact Psychiatric exam: Present: normal affect, normal mood Skin exam: Present: warm, dry, intact, normal color. Absent: rash Course Vital Signs 09/23/23 05:42 Temperature 97.7 F Pulse Rate 77 Respiratory 18 Rate Blood Pressure 161/97 O2 Sat by Pulse 98 Oximetry Medical Decision Making - Medical Decision Making Was pt. sent in by a medical professional or institution (, PA, FILTER PRESS OPERATOR, urgent care, hospital, or long-term...) When possible be specific @ -No Did you speak to anyone other than the patient for history (EMS, parent, family, police, friend...)? What history was obtained from this source @ -No Did you review nursing and triage notes (agree or disagree)? Why? @ -I reviewed and agree with nursing and triage notes Were old charts reviewed (outside hosp., previous admission, EMS record, old EKG, old radiological studies, urgent care reports/EKG's, long-term records)? Report findings @ -No old charts were reviewed Differential Diagnosis (chest pain, altered mental status, abdominal pain women, abdominal pain men, vaginal bleeding, weakness, fever, dyspnea, syncope, headache, dizziness, GI bleed, back pain, seizure, CVA, palpatations, mental health, musculoskeletal)? @ -Dentalgia, dental abscess, Samson angina, impacted wisdom tooth, fractured tooth EKG interpreted by me (3pts min.). @ -Not done X-rays interpreted by me (1pt min.). @ -None done CT interpreted by me (1pt min.). @ -None done U/S interpreted by me (1pt. min.). @ -None done What testing was considered but not performed or refused? (CT, X-rays, U/S, labs)? Why? @ -None What meds were considered but not given or refused? Why? @ -None Did you discuss the management of the patient with other professionals (professionals i.e. DrShaka, PA, FILTER PRESS OPERATOR, lab, RT, psych nurse, social services analyst, legal executive, teacher, staff submarine warfare officer, housing case manager)? Give summary @ -No Was smoking cessation discussed for >3mins.? @ -No Was critical care preformed (if so, how long)? @ -No Were there social determinants of health that impacted care today? How? (Homel essness, low income, unemployed, alcoholism, drug addiction, transportation, low edu. Level, literacy, decrease access to med. care, longterm, rehab)? @ -No Was there de-escalation of care discussed even if they declined (Discuss DNR or withdrawal of care, Hospice)? DNR status @ -No What co-morbidities impacted this encounter? (DM, HTN, Smoking, COPD, CAD, Cancer, CVA, ARF, Chemo, Hep., AIDS, mental health diagnosis, sleep apnea, morbid obesity)? @ -None Was patient admitted / discharged? Hospital course, mention meds given and route, prescriptions, significant lab abnormalities, going to OR and other pertinent info. @ -Upon arrival patient was placed into room 1. Thorough history and physical exam was performed. Inspection does not demonstrate any oral swelling. No signs of blood legs. No drooling, trismus, hoarseness or stridor. There is no dental abscess. Patient is given a dose of Lodine. He will be discharged home with a prescription for Toradol. Instructed to take as directed. Follow up with his dentist for definitive treatment and return for any new or worsening symptoms. Patient was agreeable to the plan he was discharged in stable condition Undiagnosed new problem with uncertain prognosis? @ -No Drug Therapy requiring intensive monitoring for toxicity (Heparin, Nitro, Insulin, Cardizem)? @ -No Were any procedures done? @ -No Diagnosis/symptom? @ -acute dental pain Acute, or Chronic, or Acute on Chronic? @ -Acute Uncomplicated (without systemic symptoms) or Complicated (systemic symptoms)? @ -Uncomplicated Side effects of treatment? @ -No Exacerbation, Progression, or Severe Exacerbation? @ -No Poses a threat to life or bodily function? How? (Chest pain, [place], [place], pneumonia, PE, COPD, DKA, ARF, appy, cholecystitis, CVA, Diverticulitis, Homicidal, Suicidal, threat to staff... and all critical care pts) @ -No Disposition Clinical Impression: Dentalgia Disposition: HOME SELF-CARE Condition: Stable Instructions (If sedation given, give patient instructions): Toothache (ED) Additional Instructions: Please take the Toradol as needed for pain. Stop taking any other anti- inflammatories. Follow up with your dentist and return for any new or worsening symptoms Prescriptions: Ketorolac [Toradol] 10 mg PO Q8HR PRN #15 tab PRN Reason: Pain Is patient prescribed a controlled substance at d/c from ED?: No Referrals: Wei Frank MD [Primary Care Provider] - 1-2 days Time of Disposition: 06:07
== END 2023-09-23 06:14 | disposition home or self-care (01) ==
LOC: EC 05:40
DX: K08.89 Other specified disorders of teeth and supporting structures (principal); M19.90 Unspecified osteoarthritis, unspecified site; F17.200 Nicotine dependence, unspecified, uncomplicated; Z79.1 Long term (current) use of non-steroidal anti-inflammatories (NSAID)
CPT/HCPCS: 99283

== ENCOUNTER → 2024-07-15 | Outpatient (CLI) | payer OTHER ==
[2024-07-15 15:31] VITALS: BP 185/95; PULSE 75; RESP 18; TEMP 98.3
--- NOTE | 2024-07-15 16:11 | P.SLEEP ---
History of Present Illness DATE: 07/15/2024 CONSULTATION/NEW PATIENT EVALUATION HISTORY OF PRESENT ILLNESS/SLEEP-WAKE EVALUATION: 34-year-old gentleman had b een evaluated in the sleep center for possible obstructive sleep apnea hypopnea syndrome. SLEEP SCHEDULE: Usually sleep schedule from 9:30 PM to 5 AM on weekdays and from 11 PM to 7 AM on weekend. FALLING ASLEEP: No problems with falling asleep. DURING SLEEP: Patient usually sleeps on the side position with snoring and witnessed episodes of stop breathing during the sleep. Patient wakes up from sleep once to go to the restroom. No history of hypnogogical hallucinations, sleep paralysis, or cataplexy. DURING THE DAY/WAKE STATE: Patient denied any significant excessive daytime sleepiness. [place] sleepiness scale is 1. Patient may take nap around 10 AM. PAST MEDICAL HISTORY: Hypertension, arthritis with right hip problems at the present time, acid reflux PTSD, depression, anxiety. PAST SURGICAL HISTORY: [place] tooth removed. MEDICATIONS: None. SOCIAL HISTORY: Please see below. FAMILY HISTORY: Stroke, diabetes, mental illness. REVIEW OF SYSTEMS: Snoring. No fevers. No double vision. No recent chest pain. No shortness of breath. No abdominal pain. No bleeding episodes. No blood in urine. No seizure episodes. PHYSICAL EXAMINATION: GENERAL: A pleasant patient without any distress. VITAL SIGNS: Please see below, weight 412.0 pounds, BMI 55.8. HEENT: PERRLA, EOMI. Evaluation of oropharynx showed tongue protrudes midline, low position of soft palate Mallampati 34. NECK: Supple. No JVD. Thyroid is not palpable. 22.5 inches in circumference. LUNGS: Clear to percussion and to auscultation. Good air exchange. No wheezing or rhonchi. HEART: S1, S2 regular. No murmurs, gallops or rubs. ABDOMEN: Soft and nontender. Bowel sounds are present. No organomegaly appreciated. EXTREMITIES: No clubbing or cyanosis. THREAD WINDER: Awake, alert, and oriented x3. Cranial nerves 2 to 7 intact. There is no fasciculation or atrophy noted. No focal deficits observed. ASSESSMENT: 1. Snoring, witnessed episodes of stop breathing during the sleep, extremely low position of soft palate Mallampati 34, extremely wide neck 22.5 inches in circumference. Obstructive sleep apnea hypopnea syndrome. 2. Morbid obesity, BMI 55.8. 3. Hypertension. 4. Acid reflux, including during the sleep. 5. Right hip arthritis, considering for right hip replacement. 6 . History of depression. 7. History of anxiety. 8. History of PTSD. 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 Polysomnography for evaluation of patient's breathing during sleep. 2. Following plan after reading sleep study. 3. Preferable position during sleep on the side. 4. No driving if patient feels any sleepiness. Patient is aware of civil and criminal liability for unsafe driving. 5. Sleep hygiene with regular sleep time for at least 7.5-8 hours. 6. Watching and aggressive losing weight program. Thank you very much for referring this patient for consultation. Sincerely, Donnie Barber MD, PhD, FAASM. Diplomat of [place] [employer], Sleep Medicine Board by [place] [employer] [employer] Commercial Pest Control Technician of [facility] [place] Past Medical History Past Medical History: Osteoarthritis (OA) Additional Past Medical History / Comment(s): bone spurs History of Any Multi-Drug Resistant Organisms: None Reported Past Surgical History: Joint Replacement Additional Past Surgical History / Comment(s): [place] teeth Past Psychological History: ADD/ADHD, Anxiety, Depression, Panic Disorder, PTSD Smoking Status: Former smoker Past Alcohol Use History: Rare Additional Past Alcohol Use History / Comment(s): Pt recently quit smoking in April 2024. Past Drug Use History: None Reported - Past Family History Mother Family Medical History: CVA/TIA, Diabetes Mellitus Additional Family Medical History / Comment(s): Mental illness Father Family Medical History: CVA/TIA Additional Family Medical History / Comment(s): TIA, mental illness Medications and Allergies Home Medications Medication Instructions Recorded Confirmed Type Acetaminophen [Tylenol] 650 mg PO Q4H PRN 08/03/20 08/03/20 History oxyCODONE-APAP 10-325MG [Percocet 1 tab PO Q4HR PRN 3 Days #18 tab 05/14/21 Rx 10-325 mg] Ketorolac [Toradol] 10 mg PO Q8HR PRN #15 tab 09/23/23 Rx Allergies Allergy/AdvReac Type Severity Reaction Status Date / Time No Known Allergies Allergy Verified 09/23/23 05:42 Physical Exam Vitals: Vital Signs Temp Pulse Resp BP Pulse Ox 07/15/24 15:24 98.3 F 75 18 185/95 96 Intake and Output 07/15/24 07/15/24 07/15/24 06:59 14:59 22:59 Other: Weight 186.88 kg Sleep Note - Sleep Data ESS Total: 1 - Sleep Note Sleep Note: Temperature: 98.3 F Pulse Rate: 75 Respiratory Rate: 18 Blood Pressure: 185/95 SpO2: 96 Height: 6 ft Weight: 186.88 kg BMI: Neck Circumference: 22.5
== END ==
LOC: 3 N SLEEP 14:58
PROVIDERS: ATTEND Internal Medicine
DX: G47.33 Obstructive sleep apnea (adult) (pediatric)
CPT/HCPCS: 99211

== ENCOUNTER 2024-08-05 19:47 | Outpatient (CLI) | payer OTHER ==
--- NOTE | 2024-08-06 10:23 | P.PCN ---
Description of Procedure: POLYSOMNOGRAPHY REPORT PROCEDURE(S)/DATE(S): Polysomnography 08/05/2024 CLINICAL: Patient has been seen in the sleep center for evaluation of obstructive sleep apnea-hypopnea syndrome. Please see my consultation. Sleep study has been done for evaluation of patient breathing during the sleep. PROCEDURE: The standard montage for clinical polysomnography included the electroencephalogram, the electrooculogram, the mentalis surface electromyography and Lead II cardiography. The respiratory battery consisted of measurements of nasal/buccal air flow, pressure transducer measurements from nose, thoracic and/or abdominal effort and intercostal surface electromyography. Video monitoring has been done to check for any parasomnia events. Nocturnal oxyhemoglobin saturations were obtained by finger oximetry. Step-conte titration with positive airway pressure was utilized to control the respiratory events, if necessary. RESULTS: During the diagnostic sleep study sleep efficiency was normal 92.6%. Latency to sleep onset was in short range 8.0 min. Sleep architecture showed s tage NI was short 3.1%, Delta sleep was close to normal 4.8%, REM sleep was increased to 34.2%. Respiratory channel showed 32 obstructive apneas, 0 mixed apneas, 0 central apneas, 97 hypopneas with lowest oxygen level 71%. Total apnea hypopnea index was 21.2. Heart rate was in the range between 55 and 66, average 60. EMG showed 0 periodic limb movements per hour. IMPRESSIONS: 1. Moderate obstructive sleep apnea hypopnea syndrome. 2. No significant periodic limb movements have been documented. Please see other impressions from consultation PLAN: 1. The patient will have PAP titration for correction of respiratory abnormalities during the sleep. 2. Losing weight program. 3. Sleep hygiene with regular time in bed for at least 7-1/2 hours. 4. No driving if feeling sleepiness. Thank you very much for allowing me to participate in the management of your patient. Sincerely, Donnie Barber MD, PhD, FAASM. Diplomat of [place] [employer], Sleep Medicine Board by [place] [employer] Attraction Attendant of [facility] [place] cc: Wei Frank MD
== END 2024-08-06 05:17 | disposition home or self-care (01) ==
LOC: 3 N SLEEP 19:47
PROVIDERS: ATTEND Internal Medicine
DX: G47.33 Obstructive sleep apnea (adult) (pediatric) (principal); F17.200 Nicotine dependence, unspecified, uncomplicated
CPT/HCPCS: 95810

== ENCOUNTER 2024-10-14 19:50 | Outpatient (CLI) | payer OTHER ==
--- NOTE | 2024-10-15 14:26 | P.PCN ---
Description of Procedure: CLINICAL: Titration with positive air pressure has been done for correction of respiratory abnormalities during sleep. DESCRIPTION OF PROCEDURE: The standard montage for clinical polysomnography included the electroencephalogram, the electrocardiogram, the mentalis surface electromyography and Lead II cardiography. The respiratory battery consisted of measurements of nasal /buccal air flow, pressure transducer measurements from the nose, thoracic and /or abdominal effort and intercostal surface electromyography. Video monitoring has been done to check for any parasomnia events. Nocturnal oxyhemoglobin saturations were obtained by finger oximetry. Step-conte titration with positive airway pressure was utilized to control respiratory events. Raw data of sleep recording has been reviewed and is adequate. RESULTS: Sleep efficiency was slightly decreased to 86.1%. Latency to sleep onset was normal 11.5 minutes.]. Sleep architecture showed stage N1 was normal 4.0%, Delta sleep was normal 7.1%, REM sleep was normal in upper range 29.0%. Heart rate was minimum 55 BPM, maximum 63 BPM, average 59 BPM. EMG showed 29.8 periodic limb movements per hour with 0.2 micriarousals per hour. PAP titration have been done with CPAP up to the pressure 12 cm H2O. The best results were at the pressure 12 cm H2O. Apnea hypopnea index reduced to 2.8. IMPRESSION: 1. Obstructive sleep apnea hypopnea syndrome on controle with PAP treatment. 2. Significant periodic limb movements have been documented. Please see other impressions from consultation. PLAN: 1. The patient will have treatment with positive air pressure equipment with the level of pressure AutoPAP 6-14 cm H2O and should use it every night for the whole night. 2. Watching and losing weight. 3. Sleep hygiene with regular time in bed for at least 8 hours. 4. No driving if feeling any sleepiness. 5. I will see the patient for follow up visit to explain the results of the test, recommendations, check compliance with treatment and make any necessary adjustment related to mask fitting, pressure and humidification. 6. Please check iron profile including ferritin level. Low level of iron may increase risk for periodic limb movements Thank you very much for allowing me to participate in the management of your patient. Sincerely, Donnie Barber MD, PhD, FAASM Diplomat of [place] [employer] Sleep Medicine Board of [place] [employer] Bag Press Operator of [facility] [place] cc: Wei Frank MD
== END 2024-10-15 05:25 | disposition home or self-care (01) ==
LOC: 3 N SLEEP 19:50
PROVIDERS: ATTEND Internal Medicine
DX: G47.33 Obstructive sleep apnea (adult) (pediatric) (principal); G47.61 Periodic limb movement disorder; F17.210 Nicotine dependence, cigarettes, uncomplicated
CPT/HCPCS: 95811

== ENCOUNTER → 2024-12-31 | Outpatient (CLI) | payer OTHER ==
--- NOTE | 2024-12-31 11:18 | P.PROGSL ---
Subjective DATE: 12/31/2024 FOLLOW UP VISIT. Patient with obstructive sleep apnea hypopnea syndrome return to sleep center for follow-up visit. Recently patient had sleep study which documented obstructive sleep apnea hypopnea syndrome. Patient was initiated on PAP therapy and today is first visit after treatment was started. Patient was able to use PAP equipment every night for the whole night. The patient does not have significant problems with the mask, PAP pressure and humidification. [place] sleepiness scale is 2. I checked information from PAP unit. PAP unit pressure 6-14, average 11.1 cm H2O. Usage is 100% for more then 4 hours, average 6.5 hours per night. Leak is 12.6 l/m, which is in acceptable range. Apnea Hypopnea Index is 0.5, which is normal. MEDICATIONS: Please see below During physical exam: GENERAL: A pleasant patient without any distress. No chest pain, no shortness of breath, no headache. VITAL SIGNS: BP 161/102 on the left arm, HR 90, RR 16, weight 412, temperature 97.4, oxygen saturation at room air 97. HEENT: PERRLA, EOMI.low position of soft palate, Mallapati 34. NECK: Supple. No JVD. LUNGS: Clear to percussion and to auscultation. Good air exchange. No wheezing or rhonchi. HEART: S1, S2 regular. ABDOMEN: Soft and nontender. Obese EXTREMITIES: No clubbing or cyanosis. SHUTTLE FINAL INSPECTOR: Awake, alert, and oriented x3. No focal deficit. Impressions: 1. Obstructive sleep apnea-hypopnea syndrome in moderate range. Patient demonstrated great compliance with treatment, benefiting from treatment. 2. Hypertension in the office, blood pressure was significantly increased in the office during previous visit too. 3. Morbid obesity. 4. Acid reflux. 5. Right hip arthritis. 6. History of depression. 7. History of PTSD. 8. History of depression. 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 Continue using PAP equipment every night for the whole night. 2. To change air filter at least 1-2 times per month. 3. PAP unit should stay lower then position of the head. 4. Advised patient to remove all remaining water from humidifier canister daily and make it dry after each usage. Refill canister with fresh distilled water before each usage. 5. Sleep hygiene with regular time in bed for at least 8 hours. 6. Precautions related to driving. No driving if feel any sleepiness. Patient is aware about serotonin cream and liability for unsafe driving 7. I will maintain prescription for PAP supplies including mask, tube, filters. 8. Monitoring blood pressure. Low-sodium diet. Prescription for losartan 25 mg once a day. To follow with primary care physician for controlling blood pressure. 9. Watching and losing weight. 10. Follow-up visit in 8 months or earlier if patient has any problems. Thank you very much for allowing me to participate in the management of your patient. Donnie Babrer MD, PhD, FAASM. Diplomat of [place] [employer], Sleep Medicine Board by [place] [employer] Panama Hat Blocker of [facility] [place] cc: Wei Frank MD Objective Home Medications: Home Medications Medication Instructions Recorded Confirmed Type Acetaminophen [Tylenol] 650 mg PO Q4H PRN 08/03/20 08/03/20 History oxyCODONE-APAP 10-325MG [Percocet 1 tab PO Q4HR PRN 3 Days #18 tab 05/14/21 Rx 10-325 mg] Ketorolac [Toradol] 10 mg PO Q8HR PRN #15 tab 09/23/23 Rx
== END ==
LOC: 3 N SLEEP 10:33
PROVIDERS: ATTEND Internal Medicine
DX: G47.33 Obstructive sleep apnea (adult) (pediatric) (principal); I10 Essential (primary) hypertension; K21.9 Gastro-esophageal reflux disease without esophagitis; E66.9 Obesity, unspecified; M16.11 Unilateral primary osteoarthritis, right hip; F17.210 Nicotine dependence, cigarettes, uncomplicated; Z86.51 Personal history of combat and operational stress reaction; Z86.59 Personal history of other mental and behavioral disorders